=== PATIENT | male | born 1945 | race Asian ===

== ENCOUNTER 2021-06-07 06:29 | Day surgery (SDC) | payer MEDICARE, OTHER ==
[2021-06-06 12:37] LABS: COVID AG,FIA SOURCE NASOPHARYNGEAL
[~2021-06-07] VITALS: Ht 167.6 cm; Wt 66.3 kg
[~2021-06-07 06:29] MED LIST: ATOR20TA86 PO; METF-445 PO; SODIUM CHLORIDE 0.9% 1,000 ML ONE; VALS40TA4 PO
[2021-06-07] MEDS ORDERED: ALBUTEROL SULFATE 2.5 MG/0.5 ML NEB SOLUTION NEB ONE (06:30)
[2021-06-07] MEDS ORDERED: SODIUM CHLORIDE 0.9% 1,000 ML IV ONE (06:30)
[2021-06-07] MEDS ORDERED: LIDOCAINE 2% 30 ML JELLY TP ONE (06:30)
[2021-06-07] MEDS ORDERED: BENZOCAINE 20% 50 MCG/SPRAY 57 GM TP ONE (06:30)
[2021-06-07 07:20] LABS: GLUCOMETER DEV NAME(LOC) SDS.; GLUCOSE,POINT OF CARE 161 MG/DL (70-110)
[2021-06-07] MEDS ORDERED: MIDAZOLAM HCL 5 MG/ML VIAL ONE (07:31)
[2021-06-07] MEDS ORDERED: FentaNYL CITRATE PF 100 MCG/2 ML VIAL ONE (07:31)
[2021-06-07] MEDS ORDERED: ALBU8.5H8 IH (07:48)
[2021-06-07] MEDS ORDERED: MONT-35 PO (07:48)
[2021-06-07] MEDS ORDERED: IBUP-2071 PO (07:48)
[2021-06-07] MEDS ORDERED: FLUT16H NASAL (07:48)
[2021-06-07] MEDS ORDERED: ASPI-1444 PO (07:48)
[2021-06-07] MEDS ORDERED: GABA-1181 PO (07:48)
[2021-06-07] MEDS ORDERED: AMLO-257 PO (07:48)
[2021-06-07] MEDS ORDERED: FAMO20 PO (07:48)
[2021-06-07] MEDS ORDERED: TELM40 PO (07:48)
[2021-06-07] MEDS ORDERED: MethylPREDNISolone SOD SUCC 125 MG/2 ML VIAL IVP ONE (08:45)
[2021-06-07] MEDS ORDERED: MethylPREDNISolone SOD SUCC 125 MG/2 ML VIAL ONE (09:03)
[2021-06-07] MEDS ORDERED: OXYGEN THERAPY IH SCH (20:00)
== END 2021-06-07 11:15 | disposition home or self-care (01) ==
LOC: SURGERY 06:29
PROVIDERS: ATTEND Internal Medicine Critical Care Medicine
DX: J38.4 Edema of larynx (principal); B37.0 Candidal stomatitis; I10 Essential (primary) hypertension; E11.9 Type 2 diabetes mellitus without complications; Z79.899 Other long term (current) drug therapy; Z79.84 Long term (current) use of oral hypoglycemic drugs; Z98.890 Other specified postprocedural states
CPT/HCPCS: 31623; 31624; 71045; 82962; 87015; 87070; 87101; 87205; 87206; 87220; 87426; 88112; 88184; 88185; 88312; C9803; J2250; J2930; J3010; J7030; J7613